=== PATIENT | male | born 1975 | race Caucasian/White ===

== ENCOUNTER 2017-04-19 15:30 | Emergency (ER) | payer OTHER ==
[2017-04-19 15:47] VITALS: BP 114/75; PULSE 94; RESP 16; TEMP 99.3; O2SAT 95
[2017-04-19] MEDS ORDERED: Fluorescein 1 mg Ophthalmic Strip OD ONE (15:52)
--- NOTE | 2017-04-19 15:53 | C.PDOC ---
History Of Present Illness 41 yo male with no PMHx, presents to the ED c/o left eye discharge and redness x 2 weeks. States that he wakes up with a crusty eye and with discharge. His left eye itches. No symptoms to the right eye. No glasses or contacts. No foreign body sensation. No trauma. No visual changes. No headache. No body weakness or numbness. No problems walking. PMD: Fay Christina. Time Seen by Provider: 04/19/17 15:42 Chief Complaint (Nursing): Eye Problem History Per: Patient Past Medical History Reviewed: Historical Data Vital Signs: Last Vital Signs Temp 99.3 F 04/19/17 15:36 Pulse 94 H 04/19/17 15:36 Resp 16 04/19/17 15:36 BP 114/75 04/19/17 15:36 Pulse Ox 95 04/19/17 15:53 - Medical History PMH: No Chronic Diseases Family History: States: No Known Family Hx - Social History Hx Alcohol Use: Yes Hx Substance Use: No - Immunization History Hx Tetanus Toxoid Vaccination: No Hx Influenza Vaccination: Yes Hx Pneumococcal Vaccination: No Review Of Systems Except As Marked, All Systems Reviewed And Found Negative. Constitutional: Negative for: Fever Eyes: Positive for: Redness (left eye), Other (left eye discharge). Negative for: Pain, Vision Change ENT: Negative for: Ear Pain Physical Exam - Physical Exam Appears: Well, No Acute Distress Skin: Normal Color Eye(s): right: Normal Inspection, left: PERRL, EOMI, Other (left eye mild redness, no discharge; no fluorescien uptake; OD 20/20 OS 20/20 b/l 20/20) ED Course And Treatment O2 Sat by Pulse Oximetry: 95 Medical Decision Making Medical Decision Makin yo male with left eye discharge most likely secondary to conjunctivitis -- will tx with erythromycin ointment and have him followup with opthamology which he already has a prescription for by his PMD Disposition Counseled Patient/Family Regarding: Diagnosis, Need For Followup, Rx Given - Disposition Referrals: Marky Griffith MD [Staff Provider] - Disposition: HOME/ ROUTINE Disposition Time: 15:57 Condition: GOOD Additional Instructions: Mr Stuart, thank you for letting us take care of you today. Your provider was Dr. Rowe. You were treated for Conjunctivitis. The emergency medical care you received today was directed at your acute symptoms. If you were prescribed any medication, please fill it and take as directed. It may take several days for your symptoms to resolve. Return to the Emergency Department if your symptoms worsen, do not improve, or if you have any other problems. Please contact your doctor or call one of the physicians/clinics you have been referred to that are listed on the Patient Visit Information form that is included in your discharge packet. Bring any paperwork you were given at discharge with you along with any medications you are taking to your follow up visit. Our treatment cannot replace ongoing medical care by a primary care provider (PCP) outside of the emergency department. Thank you for allowing the [facility] team to be part of your care today. If you had an X-Ray or CT scan: A Radiologist will review the ED reading if any change in treatment is needed we will contact you. If you had a blood, urine, or wound culture: It will take several days for the results, if any change in treatment is needed we will contact you. If you had an STI test: It will take 48 hours for the results. Please call after 1 week if you have not heard back. Prescriptions: Erythromycin 0.5% [Ilytocin] 1 gm OS QID #1 tube - POA Present On Arrival: None - Clinical Impression Clinical Impression: Conjunctivitis
[2017-04-19] MEDS ORDERED: Fluorescein 1 mg Ophthalmic Strip ONE (15:57)
== END 2017-04-19 16:07 | disposition home or self-care (01) ==
LOC: C.ER 15:30
DX: H10.9 Unspecified conjunctivitis (principal)